=== PATIENT | male | born 1995 | race Caucasian/White ===

== ENCOUNTER 2017-07-06 02:03 | Emergency (ER) | payer SELFPAY ==
[2017-07-06 02:09] VITALS: RESP 16
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
[2017-07-06 03:23] VITALS: BP 135/80; PULSE 90; TEMP 97.9; O2SAT 100
== END 2017-07-06 03:23 | disposition home or self-care (01) ==
LOC: H.ER 02:03
DX: F10.10 Alcohol abuse, uncomplicated (principal)